=== PATIENT | female | born 1945 | race Caucasian/White ===

== ENCOUNTER 2019-12-20 14:26 | Emergency (ER) | payer MEDICARE, OTHER ==
[~2019-12-20] VITALS: Ht 165.1 cm; Wt 77.1 kg
--- NOTE | 2019-12-20 15:22 | NUR ---
Patient discharged to home in stable condition. Written and verbal after care instructions given. Patient verbalizes understanding of instructions. Stressed follow up or return to ER for worsening s/s.PT WALKS IN STEADY GAIT, ACCOMPANIED BY FAMILY MEMBER.
== END 2019-12-20 15:28 | disposition home or self-care (01) ==
LOC: ER 14:26
DX: S90.31XA Contusion of right foot, initial encounter (principal); W20.8XXA Other cause of strike by thrown, projected or falling object, initial encounter; Y92.89 Other specified places as the place of occurrence of the external cause; L03.115 Cellulitis of right lower limb; E03.9 Hypothyroidism, unspecified; E11.9 Type 2 diabetes mellitus without complications; R03.0 Elevated blood-pressure reading, without diagnosis of hypertension
CPT/HCPCS: 73630; A4663

== ENCOUNTER 2020-09-18 16:11 | Inpatient (IN) | payer MEDICARE, OTHER ==
[~2020-09-18] VITALS: Ht 165.1 cm; Wt 81.0 kg
--- NOTE | 2020-09-18 16:40 | NUR ---
MD at bedside for assessment, patient states she is short of breath, patient saturating 99% on 3 liters nasal cannula
[2020-09-18 17:07] LABS: MEAN CORPUSCULAR HEMOGLOBIN 29.8 uug (24.7-32.8); MEAN CORPUSCULAR VOLUME 91.8 fL (75.5-95.3); PLATELET COUNT (AUTO) 230 K/uL (179-408)
[2020-09-18 17:22] LABS: CREATININE 1.1 mg/dL (0.6-1.3); POTASSIUM 5.4 mmol/L (3.5-5.1)
[2020-09-18] MEDS ORDERED: TRAM50TA2 PO (17:27)
[2020-09-18] MEDS ORDERED: ASPI81TA31 PO (17:27)
[2020-09-18] MEDS ORDERED: PROC10TA13 PO (17:27)
[2020-09-18] MEDS ORDERED: APIX5TAB PO (17:27)
[2020-09-18] MEDS ORDERED: IPRA4AER IH (17:27)
[2020-09-18] MEDS ORDERED: NITR0.4T SL (17:27)
[2020-09-18] MEDS ORDERED: METF-495 PO (17:27)
[2020-09-18] MEDS ORDERED: TRAZ300T2 PO (17:27)
[2020-09-18] MEDS ORDERED: EZET10TA15 PO (17:27)
[2020-09-18] MEDS ORDERED: GEMF600T90 PO (17:27)
[2020-09-18] MEDS ORDERED: MONT10TA22 PO (17:27)
[2020-09-18] MEDS ORDERED: CARV6.252 PO (17:27)
[2020-09-18] MEDS ORDERED: RANO500T3 PO (17:27)
[2020-09-18] MEDS ORDERED: FERR325T28 PO (17:27)
[2020-09-18] MEDS ORDERED: CALC500T52 PO (17:27)
[2020-09-18] MEDS ORDERED: MULT-594 PO (17:27)
[2020-09-18] MEDS ORDERED: GLIM4TAB37 PO (17:27)
[2020-09-18] MEDS ORDERED: LEVO150T8 PO (17:27)
[2020-09-18] MEDS ORDERED: AMLO10TA59 PO (17:27)
[2020-09-18] MEDS ORDERED: CITA10SO3 PO (17:27)
[2020-09-18] MEDS ORDERED: METH-807 PO (17:27)
[2020-09-18] MEDS ORDERED: DICY20TA11 PO (17:27)
[2020-09-18] MEDS ORDERED: [UNRECOGNIZED DRUG - CODE] MC (17:27)
--- NOTE | 2020-09-18 18:17 | NUR ---
Valdo MELÉNDEZ accepted patient for admission. 3rd floor charge nurse notified, Room 310 provided. No nurses available at this time. Will endorse to PM shift, and keep patient here for now.
--- NOTE | 2020-09-18 18:20 | NUR ---
Patient noted [id number]% on3 liters nasal cannula, son at bedside, no signs of acute distress
--- NOTE | 2020-09-18 19:55 | NUR ---
Report given to ABRAHAM Chappell.
[2020-09-18] MEDS ORDERED: HYDROMORPHONE 1 MG/1 ML DISP.SYRIN IV ONE (20:00)
[2020-09-18] MEDS ORDERED: ONDANSETRON 4 MG/2 ML VIAL IV ONE (20:00)
[2020-09-18] MEDS ORDERED: NITROGLYCERIN OINT 1 GM PACKET TP ONE ×2 (20:00→20:08)
--- NOTE | 2020-09-18 20:00 | NUR ---
Patient states chest heaviness. Patient took 0.4 nitroglycerin that she had on her own in her purse for her chest heaviness. MD Cain made aware.
[2020-09-18] MEDS ORDERED: HYDROMORPHONE 1 MG/1 ML DISP.SYRIN ONE (20:08)
[2020-09-18] MEDS ORDERED: ONDANSETRON 4 MG/2 ML VIAL ONE (20:08)
--- NOTE | 2020-09-18 20:18 | NUR ---
Pt. admitted to telemetry room 310, under care of RODRI Hugo. Belongs List completed
[2020-09-18 20:43] VITALS: BP 129/71
[2020-09-18] MEDS ORDERED: Tylenol #3 PO (20:46)
[2020-09-18] MEDS ORDERED: IPRATROPIUM BROMIDE 0.5 MG/2.5 ML NEBU NEB PRN (21:15)
[2020-09-18] MEDS ORDERED: RANOLAZINE 500 MG TAB.ER.12H PO SCH (21:15)
[2020-09-18] MEDS ORDERED: METHOCARBAMOL 750 MG TABLET PO PRN (21:15)
[2020-09-18] MEDS ORDERED: ALBUTEROL SULFATE 2.5 MG/3 ML NEBU NEB PRN (21:15)
[2020-09-18] MEDS ORDERED: Z GUARD REMEDY PASTE 57 GM TUBE TOP PRN (21:30)
[2020-09-18] MEDS ORDERED: MAGNESIUM HYDROXIDE 30 ML LIQUID UDC PO PRN (21:30)
[2020-09-18] MEDS ORDERED: ONDANSETRON 4 MG/2 ML VIAL IV PRN (21:30)
[2020-09-18] MEDS ORDERED: TRAZODONE 100 MG TABLET PO SCH (22:15)
[2020-09-18] MEDS ORDERED: ACETAMINOPHEN/CODEINE 300-30 MG TABLET PO PRN (22:15)
[2020-09-18] MEDS ORDERED: INSULIN REGULAR, HUMAN 300 UNIT/3 ML VIAL SQ PRN (23:30)
[2020-09-18] MEDS ORDERED: DEXTROSE 50% 50 ML DISP.SYRIN IV PRN (23:30)
[2020-09-18] MEDS ORDERED: INSULIN REGULAR, HUMAN 300 UNITS/3 ML VIAL SQ PRN (23:30)
[2020-09-19 00:13] VITALS: BP 102/63
[2020-09-19] MEDS: SODIUM POLYSTYRENE SULFONATE 15 G/60 ML LIQUID UDC PO ONE ×2 (00:59→01:30)
[2020-09-19 04:40] VITALS: BP 135/72
--- NOTE | 2020-09-19 05:16 | NUR ---
pt rested well in between care; seen by Dr Lyle; new orders made; needs attended; safety maintained. plan of care initiated; continue to monitor
[2020-09-19] MEDS: BLOOD SUGAR DIAGNOSTIC 1 EACH STRIP VI SCH ×6 (06:07→20:18)
[2020-09-19] MEDS: LEVOTHYROXINE SODIUM 150 MCG TABLET PO SCH (06:20)
[2020-09-19] MEDS: PANTOPRAZOLE SODIUM 40 MG TABLET.DR PO SCH (06:20)
[2020-09-19 06:24] LABS: HEMATOCRIT 28.4 % (31.2-41.9); MEAN CORPUSCULAR HEMOGLOBIN 30.3 uug (24.7-32.8); MEAN CORPUSCULAR VOLUME 92.7 fL (75.5-95.3); PLATELET COUNT (AUTO) 195 K/uL (179-408)
--- NOTE | 2020-09-19 06:39 | NUR ---
blood sugar this AM is 49 then hypoglycemia protocol started; then 65 then 98; to be informed; safety maintained.
[2020-09-19 06:53] LABS: BILIRUBIN,TOTAL 0.4 mg/dL (0.2-1.0); CREATININE 1.1 mg/dL (0.6-1.3); MAGNESIUM 1.7 mg/dL (1.8-2.4); POTASSIUM 4.8 mmol/L (3.5-5.1); TOTAL PROTEIN, SERUM 6.3 g/dL (6.4-8.2)
[2020-09-19 07:02] LABS: THYROID STIMULATING HORMONE 4.02 mIU/mL (0.358-3.740)
--- NOTE | 2020-09-19 07:30 | NUR ---
Patient resting in bed. No s/s of discomfort or distress. Oxygen at 3 LPM via nasal cannula. A fib on the conveyor monitor. Continent of bowel and bladder. IV to left forearm with dressing c/d/i. Plan for today is cardiac consult and echocardiogram. Needs met at this time.
[2020-09-19] MEDS ORDERED: DEXTROSE 50% 50 ML DISP.SYRIN IV PRN (07:45)
[2020-09-19] MEDS ORDERED: AMLODIPINE 10 MG TABLET PO SCH (09:00)
[2020-09-19] MEDS ORDERED: CARVEDILOL 3.125 MG TABLET PO SCH (09:00)
[2020-09-19] MEDS ORDERED: AMLODIPINE 5 MG TABLET PO SCH (09:00)
[2020-09-19] MEDS ORDERED: GEMFIBROZIL 600 MG TABLET PO SCH (09:00)
[2020-09-19] MEDS ORDERED: MAGNESIUM OXIDE 400 MG TABLET PO ONE (09:45)
[2020-09-19] MEDS: NITROGLYCERIN 0.4 MG/TAB BOTTLE SL PRN (10:00)
--- NOTE | 2020-09-19 10:00 | NUR ---
Patient called and reported SOB. Vital signs taken, WNL. Nitroglycerin SL tablet given x1 and AM medications provided. Patient states that she is slowly feeling relief from her SOB. Reported to Dr. Lyle. Orders to replace magnesium. Orders carried.
[2020-09-19] MEDS: RANOLAZINE 500 MG TAB.ER.12H PO SCH ×2 (10:34→17:35)
[2020-09-19] MEDS: EZETIMIBE 10 MG TABLET PO SCH (10:35)
[2020-09-19] MEDS: FUROSEMIDE 40 MG/4 ML VIAL IV SCH ×2 (10:35→20:19)
[2020-09-19] MEDS: APIXABAN 5 MG TABLET PO SCH ×2 (10:35→17:00)
[2020-09-19] MEDS: ASPIRIN 81 MG TAB.CHEW PO SCH (10:35)
[2020-09-19] MEDS: CITALOPRAM 20 MG TABLET PO SCH (10:36)
[2020-09-19] MEDS: CARVEDILOL 6.25 MG TABLET PO SCH ×2 (10:36→17:35)
[2020-09-19] MEDS: CALCIUM CARBONATE 500 MG TABLET PO SCH ×4 (10:36→20:19)
[2020-09-19] MEDS: MONTELUKAST SODIUM 10 MG TABLET PO SCH (10:37)
[2020-09-19] MEDS: DICYCLOMINE HCL 20 MG TABLET PO SCH ×4 (10:38→20:19)
[2020-09-19] MEDS ORDERED: MAGNESIUM SULFATE/D5W 100 ML IV SCH (11:30)
[2020-09-19 12:00] VITALS: BP 102/64
[2020-09-19] MEDS: INSULIN REGULAR, HUMAN 300 UNIT/3 ML VIAL SQ PRN ×2 (12:45→20:23)
[2020-09-19] MEDS: METHOCARBAMOL 750 MG TABLET PO PRN (15:28)
[2020-09-19 16:00] VITALS: BP 124/73
--- NOTE | 2020-09-19 18:42 | NUR ---
Patient watching television. No s/s of discomfort or distress. No further episodes of SOB. Oxygen at 3 LPM via nasal cannula. Continues to run afib on the legal paraprofessional. Eating and voiding well. Echocardiogram complete. Cardiology consult pending. Needs met at this time. Will endorse to night nurse.
--- NOTE | 2020-09-19 19:30 | NUR ---
Report received. Patient KRYSTLE EDWARD, able to make needs known. Denies any pain and discomfort at this time. NAD noted. Addendum: 09/20/20 at 0003 by KALEY RODRIGUEZ RN Amended: Links added. Addendum: 09/20/20 at 0005 by KALEY RODRIGUEZ RN Amended: Links added. Addendum: 09/20/20 at 0006 by KALEY RODRIGUEZ RN Amended: Links added. Addendum: 09/20/20 at 0007 by KALEY RODRIGUEZ RN Amended: Links added. Addendum: 09/20/20 at 0007 by KALEY RODRIGUEZ RN Amended: Links added. Addendum: 09/20/20 at 0007 by KALEY RODRIGUEZ RN Amended: Links added.
[2020-09-19 20:00] VITALS: BP 100/45
[2020-09-19] MEDS: ATORVASTATIN 40 MG TABLET PO SCH (20:19)
--- NOTE | 2020-09-19 20:19 | NUR ---
Scheduled medications given. Plan of care discussed; patient verbalized understanding. Watching TV. Addendum: 09/20/20 at 0005 by KALEY RODRIGUEZ RN Amended: Links added. Addendum: 09/20/20 at 0006 by KALEY RODRIGUEZ RN Amended: Links added. Addendum: 09/20/20 at 0007 by KALEY RODRIGUEZ RN Amended: Links added. Addendum: 09/20/20 at 0007 by KALEY RODRIGUEZ RN Amended: Links added. Addendum: 09/20/20 at 0007 by KALEY RODRIGUEZ RN Amended: Links added.
[2020-09-19 20:20] VITALS: BP 100/45
--- NOTE | 2020-09-19 21:35 | NUR ---
Patient called; requesting for Tylenol#3 and Trazodone. C/o generalized pain and back pains. Medications give. Patient ambulates to the BR with walker. Gait steady. Voided without difficulty. Addendum: 09/20/20 at 0000 by KALEY RODRIGUEZ RN Amended: Links added. Addendum: 09/20/20 at 0000 by KALEY RODRIGUEZ RN Amended: Links added. Addendum: 09/20/20 at 0003 by KALEY RODRIGUEZ RN Amended: Links added. Addendum: 09/20/20 at 0005 by KALEY RODRIGUEZ RN Amended: Links added. Addendum: 09/20/20 at 0006 by KALEY RODRIGUEZ RN Amended: Links added. Addendum: 09/20/20 at 0007 by KALEY RODRIGUZE RN Amended: Links added. Addendum: 09/20/20 at 0007 by KALEY RODRIGUEZ RN Amended: Links added. Addendum: 09/20/20 at 0007 by KALEY RODRIGUEZ RN Amended: Links added.
[2020-09-19] MEDS: ACETAMINOPHEN/CODEINE 300-30 MG TABLET PO PRN (21:39)
[2020-09-19] MEDS: TRAZODONE 100 MG TABLET PO PRN (21:39)
[2020-09-20] VITALS: BP 106/60
--- NOTE | 2020-09-20 00:06 | NUR ---
Sleeping during rounds. NAD noted. Remains Afib on the Tele monitor, rate 70's. Addendum: 09/20/20 at 0006 by KALEY RODRIGUEZ RN Amended: Links added. Addendum: 09/20/20 at 0007 by KALEY RODRIGUEZ RN Amended: Links added. Addendum: 09/20/20 at 0007 by KALEY RODRIGUEZ RN Amended: Links added. Addendum: 09/20/20 at 0007 by KALEY RODRIGUEZ RN Amended: Links added.
[2020-09-20 00:10] VITALS: BP 106/60
[2020-09-20 04:15] VITALS: BP 109/67
[2020-09-20] MEDS: PANTOPRAZOLE SODIUM 40 MG TABLET.DR PO SCH (06:39)
[2020-09-20] MEDS: LEVOTHYROXINE SODIUM 150 MCG TABLET PO SCH (06:39)
[2020-09-20] MEDS: BLOOD SUGAR DIAGNOSTIC 1 EACH STRIP VI SCH ×4 (06:40→20:47)
[2020-09-20 07:00] LABS: HEMATOCRIT 31.2 % (31.2-41.9); MEAN CORPUSCULAR VOLUME 92.2 fL (75.5-95.3); PLATELET COUNT (AUTO) 202 K/uL (179-408)
--- NOTE | 2020-09-20 07:15 | NUR ---
received patient in bed awake, HOB elevated. on 3L nasal canula. no complains on any pain or discomfort. call light and belongings within reach. will continue to monitor
[2020-09-20 07:16] LABS: CREATININE 1.1 mg/dL (0.6-1.3); MAGNESIUM 1.7 mg/dL (1.8-2.4); PHOSPHOROUS 4.3 mg/dL (2.5-4.9); POTASSIUM 4.8 mmol/L (3.5-5.1)
--- NOTE | 2020-09-20 07:17 | NUR ---
Slept well during the night. VS stable.
[2020-09-20] MEDS: EZETIMIBE 10 MG TABLET PO SCH (08:42)
[2020-09-20] MEDS: RANOLAZINE 500 MG TAB.ER.12H PO SCH ×2 (08:42→16:58)
[2020-09-20] MEDS: ASPIRIN 81 MG TAB.CHEW PO SCH (08:42)
[2020-09-20] MEDS: MONTELUKAST SODIUM 10 MG TABLET PO SCH (08:43)
[2020-09-20] MEDS: FERROUS SULFATE 325 MG TABEC PO SCH (08:47)
[2020-09-20] MEDS: CITALOPRAM 20 MG TABLET PO SCH (08:47)
[2020-09-20] MEDS: CALCIUM CARBONATE 500 MG TABLET PO SCH ×4 (08:47→20:32)
[2020-09-20] MEDS: CARVEDILOL 6.25 MG TABLET PO SCH ×2 (08:47→17:00)
[2020-09-20] MEDS: FUROSEMIDE 40 MG/4 ML VIAL IV SCH ×2 (08:48→20:32)
[2020-09-20] MEDS: DICYCLOMINE HCL 20 MG TABLET PO SCH ×4 (08:48→20:35)
[2020-09-20] MEDS: APIXABAN 5 MG TABLET PO SCH ×2 (08:49→16:57)
[2020-09-20] MEDS: METHOCARBAMOL 750 MG TABLET PO PRN (09:15)
[2020-09-20 11:39] VITALS: BP 111/54
[2020-09-20] MEDS: INSULIN REGULAR, HUMAN 300 UNIT/3 ML VIAL SQ PRN ×2 (12:01→20:47)
[2020-09-20] MEDS: MAGNESIUM SULFATE/D5W 100 ML IV SCH ×2 (12:55→14:27)
[2020-09-20 16:08] VITALS: BP 99/64
--- NOTE | 2020-09-20 18:07 | NUR ---
patient in bed awake, on 3L nasal canula. no complains of any SOB pain or discomfort at this time. Iv patent and intact. call light within reach. will report to oncoming shift.
[2020-09-20 20:15] VITALS: BP 122/75
[2020-09-20] MEDS: ATORVASTATIN 40 MG TABLET PO SCH (20:32)
--- NOTE | 2020-09-20 20:47 | NUR ---
F/S DONE AND FOLLOW ISS . SEE EMAR .
--- NOTE | 2020-09-20 21:21 | NUR ---
DUE MEDICATION GIVEN .LASIX GIVEN ADVISED PATIENT TO CALL FOR ASSISTANCE WHEN SHE NEEDS TO USED THE BATHROOM .CALL LIGHT PLACED WITH IN REACH .PATIENT VERY HARD OF HEARING WITH HEARING AIDE .
[2020-09-20] MEDS: ACETAMINOPHEN/CODEINE 300-30 MG TABLET PO PRN (21:23)
[2020-09-20] MEDS: TRAZODONE 100 MG TABLET PO PRN (21:25)
--- NOTE | 2020-09-20 22:15 | NUR ---
ASSISTED PATIENT TO THE BATHROOM STEADY OF GAIT . NOTED WITH SOB UPON EXERTION OTHERWISE WHEN AT REST TOLERATING 02 AT 3/NASAL CANNULA . SATURATION 100%.
[2020-09-21 00:05] VITALS: BP 109/52
[2020-09-21 04:15] VITALS: BP 119/74
[2020-09-21] MEDS: BLOOD SUGAR DIAGNOSTIC 1 EACH STRIP VI SCH ×4 (06:38→20:06)
[2020-09-21] MEDS: LEVOTHYROXINE SODIUM 150 MCG TABLET PO SCH (06:38)
[2020-09-21] MEDS: PANTOPRAZOLE SODIUM 40 MG TABLET.DR PO SCH (06:38)
[2020-09-21 06:45] LABS: CREATININE 1.2 mg/dL (0.6-1.3); MAGNESIUM 1.8 mg/dL (1.8-2.4); POTASSIUM 4.1 mmol/L (3.5-5.1)
[2020-09-21 08:00] VITALS: BP 96/61
--- NOTE | 2020-09-21 08:00 | NUR ---
received report on pt. pt in bed resting, pt on 3L O2 saturating at 97%, humidifier added to O2, SOB on exertion, ambulatory, steady, FWW in room at bedside if needed. pt a/ox4, a fib on tele monitor, IV on left hand 20g, saline lock. call light within reach, bed low and locked, will continue with plan of care.
[2020-09-21] MEDS: EZETIMIBE 10 MG TABLET PO SCH (08:17)
[2020-09-21] MEDS: MONTELUKAST SODIUM 10 MG TABLET PO SCH (08:17)
[2020-09-21] MEDS: ASPIRIN 81 MG TAB.CHEW PO SCH (08:17)
[2020-09-21] MEDS: APIXABAN 5 MG TABLET PO SCH ×2 (08:17→16:47)
[2020-09-21] MEDS: CITALOPRAM 20 MG TABLET PO SCH (08:17)
[2020-09-21] MEDS: RANOLAZINE 500 MG TAB.ER.12H PO SCH ×2 (08:17→16:47)
[2020-09-21] MEDS: CALCIUM CARBONATE 500 MG TABLET PO SCH ×4 (08:18→20:05)
[2020-09-21] MEDS: FUROSEMIDE 40 MG/4 ML VIAL IV SCH (08:18)
[2020-09-21] MEDS: DICYCLOMINE HCL 20 MG TABLET PO SCH ×4 (08:18→20:06)
[2020-09-21] MEDS: CARVEDILOL 6.25 MG TABLET PO SCH ×2 (08:19→16:46)
[2020-09-21] MEDS ORDERED: MAGNESIUM SULFATE/D5W 100 ML IV SCH (09:00)
[2020-09-21] MEDS: ALBUTEROL SULFATE 2.5 MG/ 0.5 ML NEBU NEB SCH ×3 (11:07→19:10)
[2020-09-21 11:39] VITALS: BP 108/53
[2020-09-21] MEDS: HYDROCODONE/APAP 5-325MG TABLET PO PRN (11:56)
[2020-09-21] MEDS: INSULIN REGULAR, HUMAN 300 UNIT/3 ML VIAL SQ PRN ×3 (12:19→20:07)
[2020-09-21] MEDS: METHOCARBAMOL 750 MG TABLET PO PRN ×2 (12:22→22:24)
[2020-09-21 15:38] VITALS: BP 95/52
--- NOTE | 2020-09-21 18:04 | NUR ---
PT IN BED RESTING, ALL MEDICATIONS GIVEN ORDERED, PT ON 3L O2 VIA NC WITH HUMIDIFIER, NO SIGNS OF DISTRESS, NO REPORTS OF PAIN AT THIS TIME. PT A/OX4, CALL LIGHT WITHIN REACH, BED LOW AND LOCKED. IV ON THE RIGHT HAND, PATENT, INTACT, ALL NEEDS MET THIS SHIFT, WILL ENDORSE TO ONCOMING NURSE.
--- NOTE | 2020-09-21 19:24 | NUR ---
Received pt in bed, awake and verbally responsive, able to make needs known. [place]. On oxygen at 3LPM via NC, no s/s of respiratory distress. Denies any chest pain or lightheadedness. Safety measures initiated, call light within reach, will continue to monitor.
[2020-09-21 20:00] VITALS: BP 110/51
[2020-09-21] MEDS: ATORVASTATIN 40 MG TABLET PO SCH (20:05)
[2020-09-21] MEDS: ACETAMINOPHEN/CODEINE 300-30 MG TABLET PO PRN (22:48)
[2020-09-21] MEDS: TRAZODONE 100 MG TABLET PO PRN (23:22)
[2020-09-22] VITALS: BP 103/51
[2020-09-22 04:00] VITALS: BP 112/73
[2020-09-22] MEDS: LEVOTHYROXINE SODIUM 150 MCG TABLET PO SCH (06:15)
[2020-09-22] MEDS: PANTOPRAZOLE SODIUM 40 MG TABLET.DR PO SCH (06:15)
[2020-09-22] MEDS: METHOCARBAMOL 750 MG TABLET PO PRN ×2 (06:25→22:40)
--- NOTE | 2020-09-22 06:34 | NUR ---
Pt slept through the night, no significant change in condition noted. Controlled afib on tele at 75/min. Due medications administered and tolerated well. Safety measures maintained at all times. All needs attended to and met.
[2020-09-22] MEDS: BLOOD SUGAR DIAGNOSTIC 1 EACH STRIP VI SCH ×4 (06:52→20:10)
--- NOTE | 2020-09-22 08:00 | NUR ---
Discuss plan of care with patient re: fall precaution, limiting fluid intake 2ndary to her congestion, and pain management. Pt verbalize understanding. Call light is within reach.
[2020-09-22] MEDS: ALBUTEROL SULFATE 2.5 MG/ 0.5 ML NEBU NEB SCH ×4 (08:11→18:15)
[2020-09-22] MEDS: RANOLAZINE 500 MG TAB.ER.12H PO SCH ×2 (08:28→16:43)
[2020-09-22] MEDS: ASPIRIN 81 MG TAB.CHEW PO SCH (08:28)
[2020-09-22] MEDS: EZETIMIBE 10 MG TABLET PO SCH (08:29)
[2020-09-22] MEDS: CALCIUM CARBONATE 500 MG TABLET PO SCH ×4 (08:29→20:08)
[2020-09-22] MEDS: CITALOPRAM 20 MG TABLET PO SCH (08:29)
[2020-09-22] MEDS: MONTELUKAST SODIUM 10 MG TABLET PO SCH (08:29)
[2020-09-22] MEDS: FERROUS SULFATE 325 MG TABEC PO SCH (08:29)
[2020-09-22] MEDS: APIXABAN 5 MG TABLET PO SCH ×2 (08:29→16:42)
[2020-09-22] MEDS: CARVEDILOL 6.25 MG TABLET PO SCH ×2 (08:31→16:43)
[2020-09-22] MEDS: HYDROCODONE/APAP 5-325MG TABLET PO PRN ×2 (08:34→16:42)
[2020-09-22] MEDS: DICYCLOMINE HCL 20 MG TABLET PO SCH ×4 (08:34→20:09)
--- NOTE | 2020-09-22 09:45 | NUR ---
PT 86% on r/a @ rest. put pt back on o2 @ 3lit via n/c with 98% sat.
[2020-09-22 11:05] LABS: CREATININE 1.2 mg/dL (0.6-1.3); MAGNESIUM 1.7 mg/dL (1.8-2.4); POTASSIUM 4.4 mmol/L (3.5-5.1)
[2020-09-22 11:49] VITALS: BP 101/61
[2020-09-22] MEDS: INSULIN REGULAR, HUMAN 300 UNIT/3 ML VIAL SQ PRN ×3 (12:29→20:12)
[2020-09-22] MEDS ORDERED: ACETAzolamide 250 MG TABLET PO ONE (12:30)
[2020-09-22] MEDS: MAGNESIUM SULFATE/D5W 100 ML IV SCH ×2 (12:33→14:42)
[2020-09-22] MEDS: FUROSEMIDE 40 MG TABLET PO SCH (12:40)
[2020-09-22 15:51] VITALS: BP 92/44
--- NOTE | 2020-09-22 18:30 | NUR ---
Pt states that she has been going to the bathroom for the last 5 hrs every 30mins urinating. Pt is in no acute distress. call light is within reach.
--- NOTE | 2020-09-22 19:45 | NUR ---
Received pt in bed, awake and verbally responsive, denies any chest pain or discomfort. On oxygen at 3LPM via NC saturating 100. No signs of respiratory distress. Safety measures initiated, call light within reach, will continue to monitor.
[2020-09-22 20:06] VITALS: BP 96/53
[2020-09-22] MEDS: ATORVASTATIN 40 MG TABLET PO SCH (20:09)
[2020-09-23] VITALS: BP 102/61
[2020-09-23] MEDS: HYDROCODONE/APAP 5-325MG TABLET PO PRN ×2 (04:09→08:13)
[2020-09-23 04:15] VITALS: BP 113/75
[2020-09-23] MEDS: ACETAMINOPHEN/CODEINE 300-30 MG TABLET PO PRN ×2 (05:24→20:31)
[2020-09-23] MEDS: LEVOTHYROXINE SODIUM 150 MCG TABLET PO SCH (06:04)
[2020-09-23] MEDS: PANTOPRAZOLE SODIUM 40 MG TABLET.DR PO SCH (06:04)
[2020-09-23 06:44] LABS: HEMATOCRIT 30.2 % (31.2-41.9); MEAN CORPUSCULAR HEMOGLOBIN 30.2 uug (24.7-32.8); MEAN CORPUSCULAR VOLUME 91.4 fL (75.5-95.3); PLATELET COUNT (AUTO) 194 K/uL (179-408)
[2020-09-23] MEDS: NITROGLYCERIN 0.4 MG/TAB BOTTLE SL PRN (06:44)
--- NOTE | 2020-09-23 06:44 | NUR ---
Pt verbalized she just took her Nitroglycerin 0.4mg because she is having chest pain. Repositioned comfortably in bed, VS checked and ordered an EKG STAT.
[2020-09-23] MEDS: ALBUTEROL SULFATE 2.5 MG/ 0.5 ML NEBU NEB SCH ×4 (06:59→19:19)
[2020-09-23 07:01] LABS: CARBON DIOXIDE 35 mmol/L (21-32); CHLORIDE 101 mmol/L (98-107); CREATININE 1.5 mg/dL (0.6-1.3); GLUCOSE 132 mg/dL (74-106); MAGNESIUM 2.2 mg/dL (1.8-2.4); POTASSIUM 4.4 mmol/L (3.5-5.1); UREA NITROGEN, BLOOD 34 mg/dL (7-18)
[2020-09-23] MEDS: BLOOD SUGAR DIAGNOSTIC 1 EACH STRIP VI SCH ×4 (07:02→20:29)
--- NOTE | 2020-09-23 07:03 | NUR ---
Notified Dr. Crowder of pt's chest pain and EKG reading. Pt verbalized "Chest pain is gone now. I feel better".
--- NOTE | 2020-09-23 08:00 | NUR ---
SNR on tele no ectopy noted or any st elevation noted. Pt denies any further c/o chest pain. PT currently on o2 @ 2lit via n/c with o2 saturation of 96%. No SOB noted. Call light is within reach. Pt alert and oriented and able to make her needs known. Pt very mobile and moving around her bed and able to sit at edge of bed independently. Pt has good appetite for breakfast.
[2020-09-23] MEDS: MONTELUKAST SODIUM 10 MG TABLET PO SCH (08:13)
[2020-09-23] MEDS: CALCIUM CARBONATE 500 MG TABLET PO SCH ×4 (08:13→20:30)
[2020-09-23] MEDS: FUROSEMIDE 40 MG TABLET PO SCH (08:13)
[2020-09-23] MEDS: ASPIRIN 81 MG TAB.CHEW PO SCH (08:13)
[2020-09-23] MEDS: RANOLAZINE 500 MG TAB.ER.12H PO SCH ×2 (08:13→17:02)
[2020-09-23] MEDS: CITALOPRAM 20 MG TABLET PO SCH (08:13)
[2020-09-23] MEDS: EZETIMIBE 10 MG TABLET PO SCH (08:13)
[2020-09-23] MEDS: APIXABAN 5 MG TABLET PO SCH ×2 (08:14→17:05)
[2020-09-23] MEDS: CARVEDILOL 6.25 MG TABLET PO SCH ×2 (08:20→17:02)
[2020-09-23] MEDS: DICYCLOMINE HCL 20 MG TABLET PO SCH ×4 (08:25→20:31)
--- NOTE | 2020-09-23 11:00 | NUR ---
Dr Crowder saw pt. Pt questioning about o2 tank at home. Per case management Malena o2 tank has been request.
[2020-09-23 11:48] VITALS: BP 104/56
[2020-09-23] MEDS: METHOCARBAMOL 750 MG TABLET PO PRN (12:11)
[2020-09-23] MEDS: INSULIN REGULAR, HUMAN 300 UNIT/3 ML VIAL SQ PRN ×2 (12:16→20:30)
[2020-09-23 15:54] VITALS: BP 99/58
--- NOTE | 2020-09-23 19:30 | NUR ---
RECEIVED PT AWAKE, ALERT AND ORIENTEDX4. PT IN NO ACUTE DISTRESS. IV INTACT. PT ON 2L NASAL CANNULA. SAFETY AND COMFORT PROVIDED. WILL CONTINUE TO MONITOR.
[2020-09-23 20:15] VITALS: BP 99/64
[2020-09-23] MEDS: ATORVASTATIN 40 MG TABLET PO SCH (20:30)
--- NOTE | 2020-09-23 21:31 | NUR ---
TYLENOL #3 PRN GIVEN FOR PT FOR GENERALIZED PAIN. PT TOLERATED IT WELL. WILL CONTINUE TO MONITOR.
[2020-09-24 00:03] VITALS: BP 112/50
[2020-09-24] MEDS: HYDROCODONE/APAP 5-325MG TABLET PO PRN ×2 (00:29→08:33)
[2020-09-24] MEDS: METHOCARBAMOL 750 MG TABLET PO PRN (02:30)
[2020-09-24 04:15] VITALS: BP 104/54
--- NOTE | 2020-09-24 04:15 | NUR ---
AT 0029H NORCO 5-325MG PT GIVEN FOR GENERALIZED PAIN. PT TOLERATED IT WELL. AT 0230H ROBAXIN 1500MG GIVEN FOR PT FOR MUSCLE SPASM. PT TOLERATED IT WELL. SAFETY AND COMFORT PROVIDED. WILL CONTINUE TO MONITOR.
[2020-09-24 06:08] LABS: HEMATOCRIT 32.8 % (31.2-41.9); MEAN CORPUSCULAR HEMOGLOBIN 29.6 uug (24.7-32.8); MEAN CORPUSCULAR VOLUME 91.6 fL (75.5-95.3); PLATELET COUNT (AUTO) 193 K/uL (179-408)
[2020-09-24] MEDS: LEVOTHYROXINE SODIUM 150 MCG TABLET PO SCH (06:17)
[2020-09-24] MEDS: PANTOPRAZOLE SODIUM 40 MG TABLET.DR PO SCH (06:17)
--- NOTE | 2020-09-24 06:20 | NUR ---
PT SLEPT INTERMITTENTLY. PT IN NO ACUTE DISTRESS. PT ON 2L NASAL CANNULA. PRESCRIBED MEDICATION GIVEN AND PT TOLERATED IT WELL. IV INTACT. RECENT BLOOD SUGAR IS 131. ALL NEEDS ARE MET. SAFETY AND COMFORT PROVIDED. WILL ENDORSE TO INCOMING NURSE FOR CONTINUITY OF CARE.
[2020-09-24] MEDS: BLOOD SUGAR DIAGNOSTIC 1 EACH STRIP VI SCH ×2 (06:36→11:51)
[2020-09-24 06:59] LABS: CREATININE 1.3 mg/dL (0.6-1.3); MAGNESIUM 1.9 mg/dL (1.8-2.4); PHOSPHOROUS 3.7 mg/dL (2.5-4.9); POTASSIUM 4.2 mmol/L (3.5-5.1)
[2020-09-24] MEDS: ALBUTEROL SULFATE 2.5 MG/ 0.5 ML NEBU NEB SCH ×2 (07:55→11:14)
[2020-09-24] MEDS: ASPIRIN 81 MG TAB.CHEW PO SCH (08:23)
[2020-09-24] MEDS: DICYCLOMINE HCL 20 MG TABLET PO SCH ×2 (08:24→11:53)
[2020-09-24] MEDS: FERROUS SULFATE 325 MG TABEC PO SCH (08:24)
[2020-09-24] MEDS: EZETIMIBE 10 MG TABLET PO SCH (08:24)
[2020-09-24] MEDS: RANOLAZINE 500 MG TAB.ER.12H PO SCH (08:24)
[2020-09-24] MEDS: CALCIUM CARBONATE 500 MG TABLET PO SCH ×2 (08:24→11:52)
[2020-09-24] MEDS: MONTELUKAST SODIUM 10 MG TABLET PO SCH (08:24)
[2020-09-24] MEDS: CITALOPRAM 20 MG TABLET PO SCH (08:24)
[2020-09-24] MEDS: CARVEDILOL 6.25 MG TABLET PO SCH (08:25)
[2020-09-24] MEDS: APIXABAN 5 MG TABLET PO SCH (08:27)
[2020-09-24] MEDS: INSULIN REGULAR, HUMAN 300 UNIT/3 ML VIAL SQ PRN ×2 (08:29→11:55)
[2020-09-24 11:46] VITALS: BP 115/49
[2020-09-24] MEDS ORDERED: SIMV10TA98 PO (14:13)
[2020-09-24] MEDS ORDERED: CARV6.252 PO (14:13)
[2020-09-24] MEDS ORDERED: FURO-151 PO (14:13)
[2020-09-24] MEDS ORDERED: POTA20TA10 PO (14:13)
--- NOTE | 2020-09-24 14:15 | NUR ---
Discharge instructions given to pt and . Reinforce DR's instructions. PT and verbalized understanding. IV taken out on left FA. PT is in no acute distress. No Sob noted. Pt is to f/u with primary doctor and cardiology as instructed.
[2020-09-24 15:42] LABS: EOSINOPHILS % (MANUAL) 3 % (0-8); LYMPHOCYTES % (MANUAL) 15 % (20-40); MONOCYTES % (MANUAL) 17 % (2-10); NEUTROPHILS % (MANUAL) 65 % (42-75)
== END 2020-09-24 14:40 | disposition home or self-care (01) | DRG 291 ==
LOC: ER 16:21 → TELE3 20:09
PROVIDERS: ADMIT Hospitalist; ATTEND Registered Nurse
DX: I11.0 Hypertensive heart disease with heart failure (principal); J96.01 Acute respiratory failure with hypoxia; I48.20 Chronic atrial fibrillation, unspecified; E44.1 Mild protein-calorie malnutrition; E87.3 Alkalosis; I08.1 Rheumatic disorders of both mitral and tricuspid valves; I50.33 Acute on chronic diastolic (congestive) heart failure; E03.9 Hypothyroidism, unspecified; E83.42 Hypomagnesemia; E87.5 Hyperkalemia; F32.9 Major depressive disorder, single episode, unspecified; I27.20 Pulmonary hypertension, unspecified; J44.9 Chronic obstructive pulmonary disease, unspecified; Z79.01 Long term (current) use of anticoagulants; Z79.84 Long term (current) use of oral hypoglycemic drugs; Z87.891 Personal history of nicotine dependence; Z90.710 Acquired absence of both cervix and uterus; Z96.652 Presence of left artificial knee joint; H91.93 Unspecified hearing loss, bilateral; J45.909 Unspecified asthma, uncomplicated; E88.09 Other disorders of plasma-protein metabolism, not elsewhere classified; E11.9 Type 2 diabetes mellitus without complications; Z20.822 Contact with and (suspected) exposure to COVID-19; R07.89 Other chest pain; Z68.29 Body mass index [BMI] 29.0-29.9, adult
CPT/HCPCS: 36415; 70030-TC; 71045; 83735; 84100; 84443; 85025; 85610; 85730; 93005; 93307; 94640; 94664; A4663; G0378; J1170; J1815; J1940; J2405; J3475; J3590; J7050; J8499

== ENCOUNTER 2021-06-22 18:56 | Emergency (ER) | payer MEDICARE, OTHER ==
[~2021-06-22] VITALS: Ht 165.1 cm; Wt 73.5 kg
[~2021-06-22 18:56] MED LIST: APIX5TAB PO; ASPI81TA31 PO; CALC500T52 PO; CARV6.252 PO; CITA10SO3 PO; DICY20TA11 PO; EZET10TA15 PO; FERR325T28 PO; FURO-151 PO; GEMF600T90 PO; GLIM4TAB37 PO; IPRA4AER IH; LEVO150T8 PO; METF-495 PO; METH-807 PO; MONT10TA22 PO; MULT-594 PO; NITR0.4T SL; POTA-194 PO; PROC10TA13 PO; RANO500T3 PO; SIMV10TA98 PO; TRAZ300T2 PO; Tylenol #3 PO; [UNRECOGNIZED DRUG - CODE] MC
--- NOTE | 2021-06-22 19:08 | NUR ---
pt mary david from home pt states she his incresing lower extrem edema.
--- NOTE | 2021-06-22 19:12 | NUR ---
Dr. Cain at bedside for MSE.
[2021-06-22] MEDS ORDERED: HYDROCODONE/APAP 5-325MG TABLET PO ONE (19:30)
[2021-06-22] MEDS ORDERED: HYDROCODONE/APAP 5-325MG TABLET ONE (19:36)
[2021-06-22 19:44] LABS: HEMATOCRIT 32.9 % (31.2-41.9); MEAN CORPUSCULAR HEMOGLOBIN 30.9 uug (24.7-32.8); MEAN CORPUSCULAR VOLUME 92.4 fL (75.5-95.3); PLATELET COUNT (AUTO) 138 K/uL (179-408)
[2021-06-22 19:49] LABS: CARBON DIOXIDE 26 mmol/L (21-32); CHLORIDE 99 mmol/L (98-107); CREATININE 1.7 mg/dL (0.6-1.3); GLUCOSE 120 mg/dL (74-106); POTASSIUM 4.1 mmol/L (3.5-5.1); UREA NITROGEN, BLOOD 72 mg/dL (7-18)
--- NOTE | 2021-06-22 20:35 | NUR ---
spoke with pt's informed him that his is being discharged. he states he will be here at approximately 945 pm.
--- NOTE | 2021-06-22 20:58 | NUR ---
pt is ambulatory with steady gait to the bathroom. Still awaiting the arrival of the for the pt to be discharged home.
[2021-06-22 21:19] VITALS: BP 144/83
--- NOTE | 2021-06-22 21:19 | NUR ---
Patient discharged to home in stable condition. Written and verbal after care instructions given. Patient verbalizes understanding of instructions. Stressed follow up or return to ER for worsening s/s. pt ambulatory with steady gait, pt was assisted to her vehicle as her came to pick her up.
[2021-07-24] MEDS ORDERED: CARV6.25 PO (10:55)
[2021-07-24] MEDS ORDERED: LEVO125T8 PO (10:55)
[2021-07-24] MEDS ORDERED: FURO-152 PO (10:55)
== END 2021-06-22 21:19 | disposition home or self-care (01) ==
LOC: ER 18:59
DX: R60.0 Localized edema (principal); I48.91 Unspecified atrial fibrillation; Z79.01 Long term (current) use of anticoagulants; J44.9 Chronic obstructive pulmonary disease, unspecified; E03.9 Hypothyroidism, unspecified; I05.0 Rheumatic mitral stenosis; E86.0 Dehydration; E11.9 Type 2 diabetes mellitus without complications; Z79.84 Long term (current) use of oral hypoglycemic drugs; Z79.82 Long term (current) use of aspirin; R06.09 Other forms of dyspnea
CPT/HCPCS: 36415; 71045; 73630; 85025; 93005; A4663

== ENCOUNTER 2021-07-21 09:02 | Inpatient (IN) | payer MEDICARE, OTHER ==
[~2021-07-21] VITALS: Ht 165.1 cm; Wt 72.6 kg
[2021-07-21] MEDS ORDERED: IOHEXOL 350 100 ML INFUS..BTL ONE (09:30)
[2021-07-21] MEDS ORDERED: SWABABLE VALVE TRANSFER SET EA MC ONE (09:30)
[2021-07-21] MEDS ORDERED: IV NORMAL SALINE 250 ML IV ONE (09:30)
--- NOTE | 2021-07-21 09:30 | NUR ---
Patient seen by physician.
[2021-07-21 09:38] LABS: HEMATOCRIT 33.6 % (31.2-41.9); MEAN CORPUSCULAR HEMOGLOBIN 30.8 uug (24.7-32.8); MEAN CORPUSCULAR VOLUME 89.6 fL (75.5-95.3); PLATELET COUNT (AUTO) 239 K/uL (179-408)
[2021-07-21 09:43] LABS: CARBON DIOXIDE 31 mmol/L (21-32); CHLORIDE 93 mmol/L (98-107); CREATININE 2.1 mg/dL (0.6-1.3); GLUCOSE 78 mg/dL (74-106); POTASSIUM 3.4 mmol/L (3.5-5.1); UREA NITROGEN, BLOOD 69 mg/dL (7-18)
--- NOTE | 2021-07-21 09:57 | NUR ---
Pt. taken down to CT.
--- NOTE | 2021-07-21 11:29 | NUR ---
A call to [facility] message left to Dr. Shah awaiting call back.
[2021-07-21] MEDS ORDERED: ONDANSETRON 4 MG/2 ML VIAL IV ONE (11:45)
[2021-07-21] MEDS ORDERED: MORPHINE SULFATE 4 MG/1 ML DISP.SYRIN IV ONE (11:45)
[2021-07-21] MEDS ORDERED: ONDANSETRON 4 MG/2 ML VIAL ONE (11:48)
[2021-07-21] MEDS ORDERED: MORPHINE SULFATE 4 MG/1 ML DISP.SYRIN ONE (11:49)
--- NOTE | 2021-07-21 12:06 | NUR ---
Telephone report given to Nelly Busby. All system covered. pt. stable HR of 84 sbp of 109/70 saturation 96% on RA.
[2021-07-21 12:23] VITALS: BP 131/80
[2021-07-21] MEDS ORDERED: HYDR-3980 PO (12:24)
[2021-07-21] MEDS ORDERED: ACET1TAB25 PO (12:24)
[2021-07-21] MEDS ORDERED: METO25TA6 PO (12:24)
[2021-07-21] MEDS ORDERED: OMEP20CA15 PO (12:24)
--- NOTE | 2021-07-21 12:35 | NUR ---
Admitted patient from the ER via [facility]. A/Ox4, unable to sit still, walk in and out of her bed. Bruising noted to the left hip and leg. photo taken in chart. belonging list signed. will continue to monitor.
[2021-07-21] MEDS ORDERED: ONDANSETRON 4 MG/2 ML VIAL IV PRN (15:00)
[2021-07-21] MEDS ORDERED: DEXTROSE 50% 50 ML DISP.SYRIN IV PRN (15:30)
--- NOTE | 2021-07-21 15:37 | NUR ---
patient was in ER at 1226.
[2021-07-21] MEDS: MORPHINE SULFATE 2 MG/1 ML DISP.SYRIN IV PRN ×2 (15:53→19:59)
[2021-07-21 16:00] VITALS: BP 129/87
[2021-07-21] MEDS: BLOOD SUGAR DIAGNOSTIC 1 EACH STRIP VI SCH ×2 (16:16→20:23)
[2021-07-21] MEDS: INSULIN REGULAR, HUMAN 300 UNIT/3 ML VIAL SQ PRN ×2 (16:21→20:24)
--- NOTE | 2021-07-21 18:57 | NUR ---
at 1830H patient was noted with HR uncontrolled ranges 115-[address] Shah ordered transfer to [facility]. Amiodarone drip was ordered, carried out. Pharmacy informed. IV line to the right arm intact, G20. will endorse to the next shift for continuity of care.
[2021-07-21] MEDS ORDERED: AMIODARONE HCL IV 150 MG in IV DEXTROSE 5% 100 ML IV ONE (19:15)
[2021-07-21] MEDS: AMIODARONE HCL IV 450 MG in IV DEXTROSE 5% 250 ML IV PRN (19:57)
[2021-07-21 20:00] VITALS: BP 120/56
--- NOTE | 2021-07-21 20:00 | NUR ---
Pt now on amiodarone drip; continue to monitor
[2021-07-21] MEDS: TEMAZEPAM 15 MG CAPSULE PO PRN (20:26)
[2021-07-21] MEDS: DOCUSATE SODIUM 100 MG CAPSULE PO SCH (20:26)
[2021-07-21] MEDS: HYDROCODONE/APAP 5-325MG TABLET PO SCH (20:30)
[2021-07-21] MEDS ORDERED: [UNRECOGNIZED DRUG - OTHER] PO SCH (21:00)
[2021-07-21] MEDS ORDERED: APIXABAN 2.5 MG TABLET PO SCH (21:00)
[2021-07-21] MEDS ORDERED: ACETAMINOPHEN WITH CODEINE PO SCH (21:00)
--- NOTE | 2021-07-21 23:00 | NUR ---
pt is very confused; trying to pull out IV and heart monitor; referred to Dr Shah and restraints has been ordered; Addendum: 07/22/21 at 0337 by TIANA PRUETT RN pt very high fall risk; continue to monitor; maintain safety.
[2021-07-21] MEDS ORDERED: diphenhydrAMINE 50 MG/1 ML VIAL IV ONE (23:30)
--- NOTE | 2021-07-21 23:58 | NUR ---
Pt c/o "itching all over her body"; no rash observed; referred to Dr Shah and Benadryl was ordered and then given to pt.
[2021-07-22] VITALS: BP 118/60
[2021-07-22] MEDS: MORPHINE SULFATE 2 MG/1 ML DISP.SYRIN IV PRN ×2 (01:18→16:34)
--- NOTE | 2021-07-22 03:35 | NUR ---
pt is more alert; ambulated to bathroom with assist and now off restraints.
[2021-07-22 04:00] VITALS: BP 112/62
[2021-07-22] MEDS: AMIODARONE HCL IV 450 MG in IV DEXTROSE 5% 250 ML IV PRN (05:11)
[2021-07-22] MEDS: BLOOD SUGAR DIAGNOSTIC 1 EACH STRIP VI SCH ×4 (06:19→20:15)
[2021-07-22] MEDS: PANTOPRAZOLE SODIUM 40 MG TABLET.DR PO SCH (06:19)
[2021-07-22 06:48] LABS: HEMATOCRIT 30.3 % (31.2-41.9); MEAN CORPUSCULAR HEMOGLOBIN 30.2 uug (24.7-32.8); MEAN CORPUSCULAR VOLUME 91.1 fL (75.5-95.3); PLATELET COUNT (AUTO) 190 K/uL (179-408)
[2021-07-22 06:49] LABS: NEUTROPHILS % (MANUAL) 0 % (42-75)
[2021-07-22] MEDS ORDERED: LEVOTHYROXINE SODIUM 150 MCG TABLET PO SCH (07:00)
[2021-07-22 07:09] LABS: ALANINE AMINOTRANSFERASE 61 U/L (14-59); ALKALINE PHOSPHATASE 49 U/L (50-136); ASPARTATE AMINOTRANSFERASE 160 U/L (15-37); CARBON DIOXIDE 28 mmol/L (21-32); CHLORIDE 93 mmol/L (98-107); CHOLESTEROL 141 mg/dL (<200); CREATININE 2.1 mg/dL (0.6-1.3); GLUCOSE 172 mg/dL (74-106); HDL CHOLESTEROL 59 mg/dL (40-60); MAGNESIUM 1.8 mg/dL (1.8-2.4); PHOSPHOROUS 4.6 mg/dL (2.5-4.9); POTASSIUM 3.3 mmol/L (3.5-5.1); TOTAL PROTEIN, SERUM 6.7 g/dL (6.4-8.2); TRIGLYCERIDES 100 MG/DL (30-150); UREA NITROGEN, BLOOD 70 mg/dL (7-18)
[2021-07-22 07:22] LABS: THYROID STIMULATING HORMONE 0.229 mIU/mL (0.358-3.740)
[2021-07-22 07:28] LABS: CREATINE KINASE, TOTAL 134 U/L (26-192)
[2021-07-22 07:31] VITALS: BP 113/77
[2021-07-22] MEDS: CARVEDILOL 6.25 MG TABLET PO SCH ×2 (08:29→17:28)
[2021-07-22] MEDS ORDERED: APIXABAN 2.5 MG TABLET PO SCH (09:00)
[2021-07-22] MEDS: FUROSEMIDE 40 MG TABLET PO SCH (09:00)
[2021-07-22] MEDS ORDERED: APIXABAN 5 MG TABLET PO SCH (09:00)
[2021-07-22] MEDS ORDERED: POTASSIUM CHLORIDE 10 MEQ TAB.PRT.SR PO ONE (09:15)
--- NOTE | 2021-07-22 10:19 | NUR ---
patient is in bed resting, got up to the bathroom. Didn't administer her Lasix because her BP was low (106/59). Will continue to monitor
--- NOTE | 2021-07-22 11:00 | NUR ---
Patient tolerated ambulating in the unit with stand by assist and fww.
[2021-07-22] MEDS ORDERED: MONT10TA33 PO (11:20)
[2021-07-22] MEDS ORDERED: FURO40TA5 PO (11:22)
[2021-07-22 11:53] VITALS: BP 111/84
[2021-07-22] MEDS: INSULIN REGULAR, HUMAN 300 UNIT/3 ML VIAL SQ PRN ×3 (12:04→20:16)
[2021-07-22 15:55] VITALS: BP 98/54
[2021-07-22] MEDS: ACETAMINOPHEN 325 MG TABLET PO PRN ×2 (16:20→16:26)
--- NOTE | 2021-07-22 17:05 | NUR ---
Patient complained of a pain in her knee, on a scale of 9 out of 10 (10 being the worst pain possible) and was given morphine. Patient resting in bed. Will continue to monitor
--- NOTE | 2021-07-22 20:00 | NUR ---
Received patient sitting up at the edge of the bed. Patient AAOx3. [place]. In no apparent distress. Calm and pleasant. On Amiodarone drip at this time. Will discontinue once last bag completed per MD order. Controlled A. fib on tele with HR of 83/min. IV site on right FA intact and patent. Patient requested to ambulate with walker and assisted to ambulate short distance in the hallway and back to her room. Other needs assessed and attended to. Safety measure initiated and call light within reached.
[2021-07-22] MEDS: DOCUSATE SODIUM 100 MG CAPSULE PO SCH (20:09)
[2021-07-22] MEDS: HYDROCODONE/APAP 5-325MG TABLET PO SCH (20:09)
[2021-07-22 20:49] VITALS: BP 116/62
[2021-07-22] MEDS: TEMAZEPAM 15 MG CAPSULE PO PRN (21:29)
--- NOTE | 2021-07-22 21:30 | NUR ---
Patient transferred to telemetry status after last Amiodarone drip completed per MD order.
[2021-07-23 00:18] VITALS: BP 120/55
[2021-07-23] MEDS: MORPHINE SULFATE 2 MG/1 ML DISP.SYRIN IV PRN ×4 (01:48→14:59)
[2021-07-23 04:10] VITALS: BP 103/56
[2021-07-23 04:34] LABS: *BILIRUBIN,URIN NEGATIVE (NEGATIVE); *BLOOD, URINE NEGATIVE (NEGATIVE); *CLARITY,URINE CLEAR (CLEAR); *COLOR,URINE YELLOW (YELLOW); *KETONES,URINE NEGATIVE (NEGATIVE); *UROBILINOGEN,URINE 0.2 E.U./dl (NORMAL); LEUKOCYTE ESTERASE ,URINE NEGATIVE (NEGATIVE); NITRITE, URINE NEGATIVE (NEGATIVE); PH,URINE 5.5 (5.0-8.0); UGLUCOSE NEGATIVE (NEGATIVE)
[2021-07-23 04:44] LABS: *CREATININE,URINE 45.4 mg/dL (30-125); *URINE TOTAL PROTEIN RANDOM 10.5 mg/dL (<150/24HR)
--- NOTE | 2021-07-23 05:42 | NUR ---
Patient remains AAOx3. In no acute distress. Given Morphine 2mg IV for complain of pain and effective. Bruise on left leg and left hip area remains visible. Controlled A. fib on tele with HR of 72/min. IV site on right FA intact and patent. Needs attended to and met. Safety measure maintained and call light within reached.
[2021-07-23] MEDS: LEVOTHYROXINE SODIUM 125 MCG TABLET PO SCH (06:08)
[2021-07-23] MEDS: PANTOPRAZOLE SODIUM 40 MG TABLET.DR PO SCH (06:08)
[2021-07-23] MEDS: BLOOD SUGAR DIAGNOSTIC 1 EACH STRIP VI SCH ×4 (06:35→20:13)
[2021-07-23 06:55] LABS: HEMATOCRIT 29.8 % (31.2-41.9); MEAN CORPUSCULAR HEMOGLOBIN 30.6 uug (24.7-32.8); MEAN CORPUSCULAR VOLUME 90.6 fL (75.5-95.3); PLATELET COUNT (AUTO) 181 K/uL (179-408)
[2021-07-23 07:30] LABS: ALANINE AMINOTRANSFERASE 56 U/L (14-59); ALKALINE PHOSPHATASE 49 U/L (50-136); ASPARTATE AMINOTRANSFERASE 97 U/L (15-37); BILIRUBIN,TOTAL 0.8 mg/dL (0.2-1.0); CARBON DIOXIDE 33 mmol/L (21-32); CHLORIDE 95 mmol/L (98-107); CREATINE KINASE, TOTAL 85 U/L (26-192); CREATININE 1.7 mg/dL (0.6-1.3); GLUCOSE 266 mg/dL (74-106); MAGNESIUM 1.8 mg/dL (1.8-2.4); PHOSPHOROUS 2.6 mg/dL (2.5-4.9); TOTAL PROTEIN, SERUM 6.3 g/dL (6.4-8.2); UREA NITROGEN, BLOOD 61 mg/dL (7-18)
[2021-07-23] MEDS: CARVEDILOL 6.25 MG TABLET PO SCH ×2 (08:42→18:00)
[2021-07-23] MEDS: FUROSEMIDE 40 MG TABLET PO SCH (08:42)
[2021-07-23] MEDS: INSULIN REGULAR, HUMAN 300 UNIT/3 ML VIAL SQ PRN ×4 (08:43→20:12)
[2021-07-23] MEDS ORDERED: FUROSEMIDE 40 MG TABLET PO SCH (09:00)
[2021-07-23] MEDS ORDERED: POTASSIUM CHLORIDE 20 MEQ POWDER PACKET GT ONE (09:00)
[2021-07-23] MEDS ORDERED: POTASSIUM CHLORIDE 20 MEQ TAB.PRT.SR PO ONE (09:15)
[2021-07-23] MEDS: FUROSEMIDE 20 MG TABLET PO SCH (09:23)
[2021-07-23] MEDS: APIXABAN 5 MG TABLET PO SCH ×2 (09:24→20:13)
--- NOTE | 2021-07-23 11:27 | NUR ---
Pt is a/o x 3-4. Pt is ambulatory, worked with PT and myself around the hospital floor. She is steady on her feet using front wheel walker. Pt's is at bedside at this time. Pt complained of pain in the knee, administered PRN pain medication. Comfort measures provided, call light within reach.
[2021-07-23 11:43] VITALS: BP 104/62
--- NOTE | 2021-07-23 15:21 | NUR ---
Pt was complaining of knee pain, flushed IV and administered PRN morphine. After administration Pt dislodged IV access. Removed IV and cleaned up arm. Notified MD. Due to pt not having other IV medications, PRN pain medication changed to PO as plan is to discharge pt tomorrow. Will continue to monitor pt and notify MD if any changes occur.
[2021-07-23 15:43] VITALS: BP 105/66
[2021-07-23] MEDS: HYDROCODONE/APAP 5-325MG TABLET PO PRN (18:54)
--- NOTE | 2021-07-23 19:30 | NUR ---
RECEIVED PT AWAKE, ALERT AND [id number].. PT IN NO ACUTE DISTRESS. IV INTACT. SAFETY AND COMFORT PROVIDED. WILL CONTINUE TO MONITOR.
[2021-07-23 20:00] VITALS: BP 102/53
[2021-07-23] MEDS: DOCUSATE SODIUM 100 MG CAPSULE PO SCH (20:10)
[2021-07-23] MEDS: ACETAMINOPHEN 325 MG TABLET PO PRN (20:11)
[2021-07-23] MEDS: TEMAZEPAM 15 MG CAPSULE PO PRN (21:45)
--- NOTE | 2021-07-23 22:00 | NUR ---
TYLENOL 650MG GIVEN AT 2010H FOR KNEE PAIN. PT TOLERATED IT WELL. AT 2144H RESTORIL 15G GIVEN TO PT PER PT REQUEST. PT TOLERATED IT WELL. PT IN NO ACUTE DISTRESS. WILL CONTINUE TO MONITOR.
[2021-07-24] MEDS: HYDROCODONE/APAP 5-325MG TABLET PO PRN ×2 (01:41→10:01)
--- NOTE | 2021-07-24 02:09 | NUR ---
AT 0141H NORCO 5-325 MG PRN GIVEN TO PT FOR LEFT KNEE PAIN. PT TOLERATED IT WELL. WILL CONTINUE TO MONITOR.
[2021-07-24 04:00] VITALS: BP 116/58
[2021-07-24 06:09] LABS: HEMATOCRIT 32.1 % (31.2-41.9); MEAN CORPUSCULAR HEMOGLOBIN 30.9 uug (24.7-32.8); PLATELET COUNT (AUTO) 217 K/uL (179-408)
[2021-07-24] MEDS: ACETAMINOPHEN 325 MG TABLET PO PRN (06:15)
[2021-07-24] MEDS: PANTOPRAZOLE SODIUM 40 MG TABLET.DR PO SCH (06:15)
[2021-07-24] MEDS: LEVOTHYROXINE SODIUM 125 MCG TABLET PO SCH (06:15)
[2021-07-24 06:18] LABS: CREATININE 1.2 mg/dL (0.6-1.3); MAGNESIUM 1.6 mg/dL (1.8-2.4); PHOSPHOROUS 2.7 mg/dL (2.5-4.9); POTASSIUM 3.4 mmol/L (3.5-5.1)
--- NOTE | 2021-07-24 06:18 | NUR ---
Pt slept intermittently. Pt in no acute distress. Pt needs reorientation . Prescribed medication given and pt tolerated it well.0615H Tylenol 650 mg prn given to pt for leg pain. Pt tolerated it well. Pain management needed. Vital signs wnl. Safety and comfort provided. All needs are met. Will endorse to incoming nurse for continuity of care.
[2021-07-24] MEDS: BLOOD SUGAR DIAGNOSTIC 1 EACH STRIP VI SCH ×2 (06:43→12:37)
[2021-07-24] MEDS ORDERED: POTASSIUM CHLORIDE 20 MEQ POWDER PACKET GT ONE (08:30)
[2021-07-24] MEDS ORDERED: MAGNESIUM OXIDE 400 MG TABLET PO ONE (09:45)
[2021-07-24] MEDS: FUROSEMIDE 20 MG TABLET PO SCH (10:00)
[2021-07-24] MEDS: APIXABAN 5 MG TABLET PO SCH (10:04)
[2021-07-24] MEDS: INSULIN REGULAR, HUMAN 300 UNIT/3 ML VIAL SQ PRN ×2 (10:10→12:39)
[2021-07-24] MEDS: CARVEDILOL 6.25 MG TABLET PO SCH (10:10)
[2021-07-24] MEDS ORDERED: CARV6.25 PO (10:55)
[2021-07-24] MEDS ORDERED: FURO-152 PO (10:55)
[2021-07-24] MEDS ORDERED: LEVO125T8 PO (10:55)
[2021-07-24 11:11] VITALS: BP 109/62
[2021-07-24 12:07] LABS: A/G RATIO 1.1 (0.7-1.7); ALBUMIN 3.2 g/dL (2.9-4.4); ALPHA-1-GLOBULIN 0.2 g/dL (0.0-0.4); ALPHA-2-GLOBULIN 0.5 g/dL (0.4-1.0); BETA GLOBULIN 0.9 g/dL (0.7-1.3); GAMMA GLOBULIN 1.3 g/dL (0.4-1.8); GLOBULIN, TOTAL 2.9 g/dL (2.2-3.9); M-SPIKE Not Observed g/dL (Not Observed)
--- NOTE | 2021-07-24 12:24 | NUR ---
Pt is a/o x 3, no complaint of pain at this time. Pt is being discharged to [facility] room 302B. Report has been called to nurse Contreras at . Both pt and aware and agreeable to transfer. Pt is ambulatory with front wheel walker. reverberatory furnace supervisor time was scheduled for 1200 with [facility] ambulance but they have not arrived yet. will continue to monitor.
--- NOTE | 2021-07-24 13:01 | NUR ---
Pt has been picked up by [facility] ambulance, All personal belongings at hand and signed for, explained discharge information and included in folder transporting to facility. No IV site, ID band removed. No complaint of pain at this time, no signs of acute distress noted or reported. Pt is stable for transfer.
== END 2021-07-24 13:00 | DRG 604 ==
LOC: ER 09:02 → MEDSURG3 12:03 → TELE3 15:44 → TELE-TD3 18:50 → TELE3 07-22 21:30 → MEDSURG3 07-23 10:17
PROVIDERS: ADMIT Internal Medicine; ATTEND Nurse Practitioner Family
DX: S80.02XA Contusion of left knee, initial encounter (principal); N17.0 Acute kidney failure with tubular necrosis; I48.20 Chronic atrial fibrillation, unspecified; G93.40 Encephalopathy, unspecified; I50.32 Chronic diastolic (congestive) heart failure; I13.0 Hypertensive heart and chronic kidney disease with heart failure and stage 1 through stage 4 chronic kidney disease, or unspecified chronic kidney disease; E87.1 Hypo-osmolality and hyponatremia; E03.9 Hypothyroidism, unspecified; E78.5 Hyperlipidemia, unspecified; E86.0 Dehydration; I27.20 Pulmonary hypertension, unspecified; J44.9 Chronic obstructive pulmonary disease, unspecified; Z20.822 Contact with and (suspected) exposure to COVID-19; Z79.84 Long term (current) use of oral hypoglycemic drugs; Z87.891 Personal history of nicotine dependence; Z90.49 Acquired absence of other specified parts of digestive tract; Z79.01 Long term (current) use of anticoagulants; I08.1 Rheumatic disorders of both mitral and tricuspid valves; N18.9 Chronic kidney disease, unspecified; E11.22 Type 2 diabetes mellitus with diabetic chronic kidney disease; X58.XXXA Exposure to other specified factors, initial encounter; Y93.9 Activity, unspecified; Y92.009 Unspecified place in unspecified non-institutional (private) residence as the place of occurrence of the external cause; R53.1 Weakness; S70.12XA Contusion of left thigh, initial encounter; Z91.81 History of falling; Z96.652 Presence of left artificial knee joint; S80.12XA Contusion of left lower leg, initial encounter
CPT/HCPCS: 36415; 70030-TC; 70450; 71045; 72170; 73502; 73700; 83550; 83735; 83970; 84100; 84155; 84156; 84165; 84300; 84443; 84484; 85025; 85730; 86850; 86900; 86901; 87086; 93005; 97161; A4663; G0378; J0282; J1200; J1815; J2270; J2405; J7050; Q9967

== ENCOUNTER 2021-10-15 08:11 | Inpatient (IN) | payer MEDICARE, OTHER ==
[~2021-10-15] VITALS: Ht 167.6 cm; Wt 99.8 kg
[2021-10-15] VITALS (12 sets, daily range): BP systolic 103–145; BP diastolic 35–91
[~2021-10-15 08:11] MED LIST changes: +ACET1TAB25 PO; -ASPI81TA31 PO; +CARV6.25 PO; -CARV6.252 PO; -FURO-151 PO; +FURO-152 PO; +HYDR-3980 PO; +LEVO125T8 PO; -LEVO150T8 PO; -METF-495 PO; -MONT10TA22 PO; +MONT10TA33 PO; +OMEP20CA15 PO; -RANO500T3 PO; -SIMV10TA98 PO; -Tylenol #3 PO
--- NOTE | 2021-10-15 08:39 | NUR ---
Dr Hernandez at the bedside for MSE.
--- NOTE | 2021-10-15 08:40 | NUR ---
notified metal cans supervisor for Midline insertion order.
--- NOTE | 2021-10-15 08:55 | NUR ---
Applied PureWick for urine collection. Pt tolorated well.
[2021-10-15] MEDS ORDERED: METH100P21 PO (09:09)
[2021-10-15] MEDS ORDERED: METO50TA16 PO (09:09)
[2021-10-15] MEDS ORDERED: FURO-151 PO (09:09)
[2021-10-15] MEDS ORDERED: VITAMIN D PO (09:09)
[2021-10-15] MEDS ORDERED: ASCO500T10 PO (09:09)
[2021-10-15] MEDS ORDERED: INSU100V8 SQ (09:09)
[2021-10-15] MEDS ORDERED: MELA3TAB41 PO (09:09)
[2021-10-15] MEDS ORDERED: METF-440 PO (09:09)
[2021-10-15] MEDS ORDERED: TRAZ-257 PO (09:09)
[2021-10-15] MEDS ORDERED: LEVO100T10 PO (09:09)
[2021-10-15] MEDS ORDERED: AMIO100T4 PO (09:09)
[2021-10-15] MEDS ORDERED: PANT40TA49 PO (09:09)
[2021-10-15] MEDS ORDERED: INSU100V39 SQ (09:09)
[2021-10-15] MEDS ORDERED: ACET-2154 PO (09:09)
[2021-10-15] MEDS ORDERED: PRO STAT PO (09:09)
[2021-10-15 09:17] LABS: HEMATOCRIT 32.4 % (31.2-41.9); MEAN CORPUSCULAR HEMOGLOBIN 31.7 uug (24.7-32.8); MEAN CORPUSCULAR VOLUME 91.7 fL (75.5-95.3); PLATELET COUNT (AUTO) 115 K/uL (179-408)
--- NOTE | 2021-10-15 09:26 | NUR ---
Segundo RNMarilyn at the bedside for Midline insertion.
[2021-10-15 09:36] LABS: ALANINE AMINOTRANSFERASE 20 U/L (14-59); ALKALINE PHOSPHATASE 83 U/L (50-136); ASPARTATE AMINOTRANSFERASE 24 U/L (15-37); BILIRUBIN,DIRECT 0.4 mg/dL (0.0-0.2); BILIRUBIN,TOTAL 0.7 mg/dL (0.2-1.0); CARBON DIOXIDE 31 mmol/L (21-32); CHLORIDE 82 mmol/L (98-107); CREATININE 0.9 mg/dL (0.6-1.3); GLUCOSE 108 mg/dL (74-106); POTASSIUM 4.6 mmol/L (3.5-5.1); TOTAL PROTEIN, SERUM 5.8 g/dL (6.4-8.2); UREA NITROGEN, BLOOD 26 mg/dL (7-18)
--- NOTE | 2021-10-15 09:40 | NUR ---
Midline placed by Marilyn ROSARIO to MARVA, double lumen angio #18.
[2021-10-15 09:43] LABS: *BILIRUBIN,URIN NEGATIVE (NEGATIVE); *BLOOD, URINE 2+ (NEGATIVE); *CLARITY,URINE CLEAR (CLEAR); *COLOR,URINE YELLOW (YELLOW); *KETONES,URINE NEGATIVE (NEGATIVE); *UROBILINOGEN,URINE 0.2 E.U./dl (NORMAL); LEUKOCYTE ESTERASE ,URINE 3+ (NEGATIVE); NITRITE, URINE NEGATIVE (NEGATIVE); PH,URINE 5.5 (5.0-8.0); UGLUCOSE NEGATIVE (NEGATIVE)
[2021-10-15 09:52] LABS: YEAST,URINE BUDDING YEAST /HPF (NONE SEEN)
[2021-10-15 09:54] LABS: BACTERIA,URINE FEW /HPF (NONE SEEN); SQUAMOUS EPITHELIAL CELL,UR FEW /HPF (NONE SEEN); WBC,URINE 20-50 /HPF (0-3)
--- NOTE | 2021-10-15 10:03 | NUR ---
Paged DR Delgadillo for admission, awaiting call back.
[2021-10-15] MEDS ORDERED: CEFTRIAXONE 1 G in IV DEXTROSE 5% 50 ML IV ONE (10:15)
[2021-10-15] MEDS ORDERED: CEFTRIAXONE /D5W 50ML IVPB **ER PYXIS IV ONE (10:25)
--- NOTE | 2021-10-15 11:10 | NUR ---
Dr Delgadillo accepted pt to CCU.
--- NOTE | 2021-10-15 12:19 | NUR ---
Pt transfered via gurney to CCU bed 3 w/ ACLS protocol.
[2021-10-15] MEDS ORDERED: FUROSEMIDE 40 MG/4 ML VIAL IV ONE (14:00)
[2021-10-15] MEDS ORDERED: ACETAMINOPHEN 325 MG TABLET PO PRN (16:45)
[2021-10-15] MEDS ORDERED: IV SODIUM CHLORIDE 3% 500 ML IV PRN (16:45)
[2021-10-15] MEDS ORDERED: MAGNESIUM HYDROXIDE 30 ML LIQUID UDC PO PRN (16:45)
[2021-10-15] MEDS ORDERED: IPRATROPIUM BROMIDE 0.5 MG/2.5 ML NEBU NEB PRN (16:45)
[2021-10-15] MEDS ORDERED: ALBUTEROL SULFATE 2.5 MG/3 ML NEBU NEB PRN (16:45)
[2021-10-15] MEDS: ASCORBIC ACID 500 MG TABLET PO SCH (17:19)
[2021-10-15] MEDS: METOPROLOL TARTRATE 50 MG TABLET PO SCH (17:19)
[2021-10-15] MEDS: METFORMIN HCL 500 MG TABLET PO SCH (17:19)
[2021-10-15] MEDS: PROTEIN SUPPLEMENT (PROSTAT) 30 ML LIQUID PO SCH (17:20)
[2021-10-15] MEDS: FUROSEMIDE 40 MG/4 ML VIAL IV SCH (20:23)
[2021-10-15] MEDS: DOCUSATE SODIUM 100 MG CAPSULE PO SCH (20:23)
[2021-10-15] MEDS: MELATONIN 3 MG TABLET PO SCH (20:24)
[2021-10-15] MEDS: TRAZODONE 100 MG TABLET PO SCH (20:24)
[2021-10-15] MEDS: APIXABAN 5 MG TABLET PO SCH (21:12)
--- NOTE | 2021-10-15 21:45 | NUR ---
Gini EMBEDDED DEVELOPER at bedside, report given. Per Gini EMBEDDED DEVELOPER, to insert FC. Noted and carried out.
[2021-10-15] MEDS: FLUCONAZOLE 100 MG TABLET PO SCH (22:05)
[2021-10-16] VITALS (18 sets, daily range): BP systolic 82–109; BP diastolic 44–85
[2021-10-16] MEDS: MORPHINE SULFATE 2 MG/1 ML DISP.SYRIN IV PRN (04:13)
[2021-10-16 05:36] LABS: HEMATOCRIT 30.7 % (31.2-41.9); MEAN CORPUSCULAR HEMOGLOBIN 31.1 uug (24.7-32.8); MEAN CORPUSCULAR VOLUME 92.2 fL (75.5-95.3); PLATELET COUNT (AUTO) 108 K/uL (179-408)
[2021-10-16 05:58] LABS: THYROID STIMULATING HORMONE 6.839 mIU/mL (0.358-3.740)
[2021-10-16] MEDS: LEVOTHYROXINE SODIUM 100 MCG TABLET PO SCH (06:20)
[2021-10-16] MEDS: PANTOPRAZOLE SODIUM 40 MG TABLET.DR PO SCH (06:20)
[2021-10-16 06:46] LABS: BILIRUBIN,TOTAL 0.6 mg/dL (0.2-1.0); CREATININE 0.9 mg/dL (0.6-1.3); PHOSPHOROUS 3.2 mg/dL (2.5-4.9); POTASSIUM 3.8 mmol/L (3.5-5.1); TOTAL PROTEIN, SERUM 5.1 g/dL (6.4-8.2)
[2021-10-16 06:53] LABS: MAGNESIUM 1.1 mg/dL (1.8-2.4)
[2021-10-16] MEDS ORDERED: MAGNESIUM OXIDE 400 MG TABLET PO ONE (07:30)
[2021-10-16] MEDS: FUROSEMIDE 40 MG/4 ML VIAL IV SCH ×2 (08:04→21:28)
[2021-10-16] MEDS: CHOLECALCIFEROL 1,000 UNIT TABLET PO SCH (08:04)
[2021-10-16] MEDS: FLUCONAZOLE 100 MG TABLET PO SCH (08:04)
[2021-10-16] MEDS: METFORMIN HCL 500 MG TABLET PO SCH ×2 (08:04→17:15)
[2021-10-16] MEDS: ASCORBIC ACID 500 MG TABLET PO SCH ×2 (08:04→17:15)
[2021-10-16] MEDS: APIXABAN 5 MG TABLET PO SCH ×2 (08:06→21:29)
[2021-10-16] MEDS: METOPROLOL TARTRATE 50 MG TABLET PO SCH ×2 (08:10→17:00)
[2021-10-16] MEDS: PROTEIN SUPPLEMENT (PROSTAT) 30 ML LIQUID PO SCH ×2 (08:15→17:15)
[2021-10-16] MEDS: MONTELUKAST SODIUM 10 MG TABLET PO SCH (08:15)
[2021-10-16] MEDS: MAGNESIUM SULFATE/D5W 100 ML IV SCH ×6 (08:15→13:21)
[2021-10-16] MEDS: CEFTRIAXONE 1 G in IV DEXTROSE 5% 50 ML IV SCH (10:03)
--- NOTE | 2021-10-16 20:30 | NUR ---
Received patient from CCU unit, alert oriented, no sob no chest pain, no complain of pain, patient has right and left arm swelling +3, tele monitor A Fib control, episode of A Fib herman also a57, no complain of pain, robison cath draining with yellow color urine in moderate in moderate amount.. patient able to swallow a pill, tolerate thin liquids without coughing, cont to monitor.
--- NOTE | 2021-10-16 20:30 | NUR ---
Received patient from CCU unit, alert oriented, no sob no chest pain, no complain of pain, patient has right and left arm swelling +3, tele monitor A Fib control, episode of A Fib herman also a57, no complain of pain, robison cath draining with yellow color urine in moderate amount. Daughter at bedside, will stay to help for the care. patient able to swallow a pill, tolerate thin liquids without coughing, cont to monitor. Addendum: 10/17/21 at 0117 by ELPIDIO RAI RN Received patient from CCU unit, alert oriented, no sob no chest pain, no complain of pain, patient has right and left arm swelling +3, tele monitor A Fib control, episode of A Fib herman also a57, no complain of pain, robison cath draining with yellow color urine in moderate amount. Daughter at bedside, will stay to help for the care. patient able to swallow a pill, tolerate thin liquids without coughing, cont to monitor. charting in error.
[2021-10-16] MEDS: TRAZODONE 100 MG TABLET PO SCH (21:28)
[2021-10-16] MEDS: DOCUSATE SODIUM 100 MG CAPSULE PO SCH (21:28)
[2021-10-16] MEDS: MELATONIN 3 MG TABLET PO SCH (21:30)
[2021-10-17 00:03] VITALS: BP 108/65
[2021-10-17] MEDS: REMEDY ESSENTIAL ZINC PASTE 113 GM TOP SCH ×3 (01:46→20:45)
[2021-10-17 04:18] VITALS: BP 105/66
[2021-10-17] MEDS: PANTOPRAZOLE SODIUM 40 MG TABLET.DR PO SCH (06:03)
[2021-10-17] MEDS: LEVOTHYROXINE SODIUM 100 MCG TABLET PO SCH (06:03)
--- NOTE | 2021-10-17 06:51 | NUR ---
Patient asleep but arousable, no sob no chest pain, tele monitor a fib controll. Patient has no complain of pain, still both arms swollen, voiding well, requires total assist with adl's, cont to monitor.
--- NOTE | 2021-10-17 07:30 | NUR ---
Sleeping, appears comfortable. Not in distress
[2021-10-17 07:35] LABS: CREATININE 0.9 mg/dL (0.6-1.3); MAGNESIUM 1.8 mg/dL (1.8-2.4); PHOSPHOROUS 3.3 mg/dL (2.5-4.9); POTASSIUM 4.3 mmol/L (3.5-5.1); URIC ACID 5.9 mg/dL (2.6-6.0)
[2021-10-17 08:59] LABS: THYROID STIMULATING HORMONE 8.144 mIU/mL (0.358-3.740)
[2021-10-17] MEDS: MUPIROCIN 2% OINT 22 GM TUBE NS SCH ×2 (10:11→20:43)
[2021-10-17] MEDS: FUROSEMIDE 40 MG/4 ML VIAL IV SCH ×2 (10:11→20:40)
[2021-10-17] MEDS: METFORMIN HCL 500 MG TABLET PO SCH ×2 (10:11→18:26)
[2021-10-17] MEDS: CHOLECALCIFEROL 1,000 UNIT TABLET PO SCH (10:12)
[2021-10-17] MEDS: FLUCONAZOLE 100 MG TABLET PO SCH (10:12)
[2021-10-17] MEDS: ASCORBIC ACID 500 MG TABLET PO SCH ×2 (10:12→18:26)
[2021-10-17] MEDS: MONTELUKAST SODIUM 10 MG TABLET PO SCH (10:12)
[2021-10-17] MEDS: PROTEIN SUPPLEMENT (PROSTAT) 30 ML LIQUID PO SCH ×2 (10:13→18:27)
[2021-10-17] MEDS: APIXABAN 5 MG TABLET PO SCH ×2 (10:13→20:55)
[2021-10-17] MEDS: CEFTRIAXONE 1 G in IV DEXTROSE 5% 50 ML IV SCH (10:14)
[2021-10-17] MEDS: METOPROLOL TARTRATE 50 MG TABLET PO SCH ×2 (10:24→18:26)
--- NOTE | 2021-10-17 10:30 | NUR ---
Generalized edema +4; Room air 96% O2 sat
[2021-10-17] MEDS ORDERED: MUPIROCIN 2% OINT 22 GM TUBE NS SCH (12:00)
[2021-10-17 12:11] VITALS: BP 90/46
[2021-10-17 16:10] VITALS: BP 108/61
--- NOTE | 2021-10-17 19:00 | NUR ---
Room air, not in distress. Ricks catheter to drainage bag with 2000 ml urine output
--- NOTE | 2021-10-17 19:50 | NUR ---
Patient received in bed awake, alert and oriented x 4, verbally conversant, severely hard of hearing. With generalized edema. No acute resp distress noted. FC intact draining to yellow color urine. EUSEBIO midline intact and patent. Needs attended. Call light within reach.
[2021-10-17 20:00] VITALS: BP 98/48
[2021-10-17] MEDS: DOCUSATE SODIUM 100 MG CAPSULE PO SCH (20:37)
[2021-10-17] MEDS: MELATONIN 3 MG TABLET PO SCH (20:39)
[2021-10-17] MEDS: TRAZODONE 100 MG TABLET PO SCH (20:44)
[2021-10-18 00:30] VITALS: BP 115/59
[2021-10-18 04:30] VITALS: BP 118/61
[2021-10-18] MEDS: PANTOPRAZOLE SODIUM 40 MG TABLET.DR PO SCH (06:14)
[2021-10-18] MEDS: LEVOTHYROXINE SODIUM 125 MCG TABLET PO SCH (06:15)
--- NOTE | 2021-10-18 07:06 | NUR ---
Slept intermittently during the night, easy to arouse. No acute distress noted. Ricks cath intact. Right upper arm midline intact and patent, no infiltration.
[2021-10-18 07:47] LABS: HEMATOCRIT 30.9 % (31.2-41.9); MEAN CORPUSCULAR HEMOGLOBIN 31.3 uug (24.7-32.8); MEAN CORPUSCULAR VOLUME 93.5 fL (75.5-95.3); PLATELET COUNT (AUTO) 108 K/uL (179-408)
[2021-10-18 07:55] LABS: CREATININE 0.9 mg/dL (0.6-1.3); MAGNESIUM 1.4 mg/dL (1.8-2.4); PHOSPHOROUS 2.7 mg/dL (2.5-4.9); POTASSIUM 3.3 mmol/L (3.5-5.1)
--- NOTE | 2021-10-18 08:40 | NUR ---
RECEIVED PT ON BED RESTING. PT IS AOX4 BUT HARD OF HEARING. PT ON RA SATURATING 97-98%. GENERALIZED EDEMA NOTED. PT HAVE EUSEBIO MIDLINE 18G. VITALS WNL.CONTROLLED AFIB. FC DRAINING WELL.
[2021-10-18] MEDS: MUPIROCIN 2% OINT 22 GM TUBE NS SCH ×2 (09:00→20:42)
[2021-10-18] MEDS: PROTEIN SUPPLEMENT (PROSTAT) 30 ML LIQUID PO SCH ×2 (09:00→17:53)
[2021-10-18] MEDS: REMEDY ESSENTIAL ZINC PASTE 113 GM TOP SCH ×2 (09:00→20:50)
[2021-10-18] MEDS ORDERED: POTASSIUM CHLORIDE 20 MEQ TAB.PRT.SR PO ONE (10:00)
[2021-10-18] MEDS: CHOLECALCIFEROL 1,000 UNIT TABLET PO SCH (10:03)
[2021-10-18] MEDS: ASCORBIC ACID 500 MG TABLET PO SCH ×2 (10:04→17:52)
[2021-10-18] MEDS: FUROSEMIDE 40 MG/4 ML VIAL IV SCH ×2 (10:04→20:41)
[2021-10-18] MEDS: FLUCONAZOLE 100 MG TABLET PO SCH (10:04)
[2021-10-18] MEDS: MONTELUKAST SODIUM 10 MG TABLET PO SCH (10:05)
[2021-10-18] MEDS: METOPROLOL TARTRATE 50 MG TABLET PO SCH ×2 (10:05→17:53)
[2021-10-18] MEDS: APIXABAN 5 MG TABLET PO SCH ×2 (10:11→20:45)
[2021-10-18] MEDS: METFORMIN HCL 500 MG TABLET PO SCH ×2 (10:14→17:52)
[2021-10-18] MEDS: CEFTRIAXONE 1 G in IV DEXTROSE 5% 50 ML IV SCH (10:23)
[2021-10-18] MEDS: MAGNESIUM SULFATE/D5W 100 ML IV SCH ×2 (11:00→11:16)
[2021-10-18 12:53] VITALS: BP 97/49
[2021-10-18 15:50] VITALS: BP 114/90
[2021-10-18] MEDS: MORPHINE SULFATE 2 MG/1 ML DISP.SYRIN IV PRN ×2 (16:15→20:54)
--- NOTE | 2021-10-18 16:40 | NUR ---
NOTIFIED DR GARCIA FOR WORSENING LEFT HAND AND ARM EDEMA. DR GARCIA ORDERED LASIX 40MG IV STAT.
[2021-10-18] MEDS ORDERED: FUROSEMIDE 40 MG/4 ML VIAL IV ONE (17:00)
--- NOTE | 2021-10-18 19:00 | NUR ---
PT IS RESTING. WATCHING TV. NO COMPLAIN OF PAIN. NO ACUTE DISTRESS NOTED.
--- NOTE | 2021-10-18 19:50 | NUR ---
RECEIVED PATIENT IN BED. HARD OF HEARING NOTED. ON TELEMONITOR, SHOWING ATRIAL FIBRILLATION CONTROLLED. PITTING EDEMA ON UPPER AND LOWER BILATERAL EXTREMITIES. PATIENT DENIES SOB AT THIS TIME, HOWEVER, REPORT OF PAIN ON THE RIGHT BREAST. NON-PHARMACOLOGICAL INTERVENTIONS DONE TO REDUCE PAIN. CAMPBELL CATHETER DRAINING CLEAR YELLOW URINE. SAFETY PRECAUTIONS IN PLACE. CALL LIGHT WITHIN REACH.
[2021-10-18] MEDS: TRAZODONE 100 MG TABLET PO SCH (20:42)
[2021-10-18] MEDS: MELATONIN 3 MG TABLET PO SCH (20:42)
[2021-10-18] MEDS: DOCUSATE SODIUM 100 MG CAPSULE PO SCH (20:42)
[2021-10-18 20:49] VITALS: BP 113/72
[2021-10-19 00:30] VITALS: BP 102/64
[2021-10-19] MEDS: MORPHINE SULFATE 2 MG/1 ML DISP.SYRIN IV PRN (02:00)
[2021-10-19 04:37] VITALS: BP 105/55
[2021-10-19] MEDS: LEVOTHYROXINE SODIUM 125 MCG TABLET PO SCH (06:06)
[2021-10-19] MEDS: PANTOPRAZOLE SODIUM 40 MG TABLET.DR PO SCH (06:06)
[2021-10-19 06:09] LABS: ALANINE AMINOTRANSFERASE 18 U/L (14-59); ALKALINE PHOSPHATASE 69 U/L (50-136); ASPARTATE AMINOTRANSFERASE 19 U/L (15-37); BILIRUBIN,TOTAL 0.3 mg/dL (0.2-1.0); CARBON DIOXIDE 34 mmol/L (21-32); CHLORIDE 89 mmol/L (98-107); CREATININE 0.8 mg/dL (0.6-1.3); GLUCOSE 170 mg/dL (74-106); MAGNESIUM 1.4 mg/dL (1.8-2.4); PHOSPHOROUS 2.6 mg/dL (2.5-4.9); POTASSIUM 3.8 mmol/L (3.5-5.1); TOTAL PROTEIN, SERUM 5.7 g/dL (6.4-8.2); UREA NITROGEN, BLOOD 23 mg/dL (7-18)
--- NOTE | 2021-10-19 06:11 | NUR ---
PATIENT SLEPT INTERMITTENTLY THROUGH THE NIGHT, COMPLAINED OF HAVING PAIN ON THE RIGHT BREAST. MORPHINE PRN GIVEN AND TOLERATED WELL. ALL NEEDS ATTENDED TO AND MET. SAFETY PRECAUTIONS MAINTAINED. CALL LIGHT WITHIN REACH.
[2021-10-19 06:41] LABS: HEMATOCRIT 30.9 % (31.2-41.9); MEAN CORPUSCULAR HEMOGLOBIN 31.2 uug (24.7-32.8); PLATELET COUNT (AUTO) 98 K/uL (179-408)
[2021-10-19 08:27] LABS: BAND % (MANUAL) 2 % (0-10); LYMPHOCYTES % (MANUAL) 14 % (20-40); MONOCYTES % (MANUAL) 5 % (2-10); NEUTROPHILS % (MANUAL) 79 % (42-75)
[2021-10-19] MEDS: MUPIROCIN 2% OINT 22 GM TUBE NS SCH (08:29)
[2021-10-19] MEDS: METFORMIN HCL 500 MG TABLET PO SCH ×2 (08:29→17:23)
[2021-10-19] MEDS: FLUCONAZOLE 100 MG TABLET PO SCH (08:30)
[2021-10-19] MEDS: MONTELUKAST SODIUM 10 MG TABLET PO SCH (08:30)
[2021-10-19] MEDS: ASCORBIC ACID 500 MG TABLET PO SCH ×2 (08:30→16:51)
[2021-10-19] MEDS: FUROSEMIDE 40 MG/4 ML VIAL IV SCH (08:30)
[2021-10-19] MEDS: CHOLECALCIFEROL 1,000 UNIT TABLET PO SCH (08:30)
[2021-10-19] MEDS: REMEDY ESSENTIAL ZINC PASTE 113 GM TOP SCH (08:32)
[2021-10-19] MEDS: APIXABAN 5 MG TABLET PO SCH (08:32)
[2021-10-19] MEDS: PROTEIN SUPPLEMENT (PROSTAT) 30 ML LIQUID PO SCH ×2 (08:32→16:51)
[2021-10-19] MEDS: METOPROLOL TARTRATE 50 MG TABLET PO SCH ×2 (08:33→16:51)
[2021-10-19] MEDS: MAGNESIUM SULFATE/D5W 100 ML IV SCH ×2 (09:24→11:15)
[2021-10-19] MEDS ORDERED: SODIUM CHLORIDE 1,000 MG TABLET PO SCH (10:00)
--- NOTE | 2021-10-19 11:50 | NUR ---
awakens easily to tactile stimuli, pt has hard of hearing. denies pain at this time. no sob on room air. midline is intact and patent. fc intact with yellow urine. no hematuria little sediments noted. needs attended. comfortable. afib controlled on telemonitor.
[2021-10-19 16:40] VITALS: BP 134/56
[2021-10-19] MEDS ORDERED: MUPI22OI2 NS (17:16)
[2021-10-19] MEDS ORDERED: ACET325T53 PO (17:16)
[2021-10-19] MEDS ORDERED: MAGN400T30 PO (17:16)
[2021-10-19] MEDS ORDERED: LEVO125T8 PO (17:16)
[2021-10-19] MEDS ORDERED: AMIO200T5 PO (17:16)
[2021-10-19] MEDS ORDERED: FURO-152 PO (17:16)
[2021-10-19] MEDS ORDERED: FLUC100T PO (17:16)
[2021-10-19] MEDS ORDERED: DOCU-141 PO (17:16)
[2021-10-19] MEDS ORDERED: SODI100010 PO (17:16)
[2021-10-19] MEDS ORDERED: MENT113O TOP (17:16)
[2021-10-19] MEDS ORDERED: MAGN400O6 PO (17:16)
[2021-10-19] MEDS ORDERED: HYDR-4209 PO (17:30)
--- NOTE | 2021-10-19 18:44 | NUR ---
agreeable to discharge back to [facility]. no acute distress. pt states she only brought her eyeglasses no other belongings. verbalized understanding of dc instructions. Addendum: 10/19/21 at 1848 by NANDO LANG RN report was given to dayna stewart at [facility]
[2021-10-19 20:15] VITALS: BP 118/68
--- NOTE | 2021-10-19 20:50 | NUR ---
Pt discharge. Pt in no acute distress. Vital signs stable. Discharge papers given to [facility] unit 320. Talked to Michelle Gomez at [facility] regarding pt will go with Ricks catheter and iv line midline EUSEBIO 18g if they need it since pt is edematous. Pt wheeled out via gurney. Pt stable.
[2021-10-19 20:54] VITALS: BP 140/52
[2021-10-19] MEDS ORDERED: MAGNESIUM OXIDE 400 MG TABLET PO SCH (21:00)
== END 2021-10-19 20:50 | DRG 871 ==
LOC: ER 08:11 → CCU 12:06 → TELE3 10-16 20:32
PROVIDERS: ADMIT Internal Medicine; ATTEND Internal Medicine
PROC: 05H933Z Insertion of Infusion Device into Right Brachial Vein, Percutaneous Approach (ICD-10-PCS; principal; 2021-10-15)
DX: B37.7 Candidal sepsis (principal); E43 Unspecified severe protein-calorie malnutrition; G92.8 Other toxic encephalopathy; I50.33 Acute on chronic diastolic (congestive) heart failure; E87.1 Hypo-osmolality and hyponatremia; I48.20 Chronic atrial fibrillation, unspecified; D68.59 Other primary thrombophilia; A41.89 Other specified sepsis; B37.49 Other urogenital candidiasis; I08.1 Rheumatic disorders of both mitral and tricuspid valves; E66.01 Morbid (severe) obesity due to excess calories; Z68.35 Body mass index [BMI] 35.0-35.9, adult; E03.9 Hypothyroidism, unspecified; D64.9 Anemia, unspecified; Z22.322 Carrier or suspected carrier of Methicillin resistant Staphylococcus aureus; I11.0 Hypertensive heart disease with heart failure; R60.1 Generalized edema; J44.9 Chronic obstructive pulmonary disease, unspecified; Z87.891 Personal history of nicotine dependence; I27.20 Pulmonary hypertension, unspecified; F03.90 Unspecified dementia, unspecified severity, without behavioral disturbance, psychotic disturbance, mood disturbance, and anxiety; H91.90 Unspecified hearing loss, unspecified ear; G89.29 Other chronic pain; M54.50 Low back pain, unspecified; R60.0 Localized edema; Z79.890 Hormone replacement therapy; E11.9 Type 2 diabetes mellitus without complications; Z79.01 Long term (current) use of anticoagulants; Z20.822 Contact with and (suspected) exposure to COVID-19; Z79.84 Long term (current) use of oral hypoglycemic drugs; Z79.899 Other long term (current) drug therapy; Z79.4 Long term (current) use of insulin; I25.10 Atherosclerotic heart disease of native coronary artery without angina pectoris; Z74.09 Other reduced mobility; F32.A Depression, unspecified; N63.0 Unspecified lump in unspecified breast; I89.0 Lymphedema, not elsewhere classified; I48.0 Paroxysmal atrial fibrillation
CPT/HCPCS: 36415; 70030-TC; 71045; 71250; 82533; 83735; 83930; 83935; 84100; 84300; 84443; 84481; 84484; 84550; 85025; 85730; 87086; 93005; 93307; 97161; A4663; G0378; J0696; J1940; J2270; J3475